=== PATIENT | male | born 1960 | race Caucasian/White ===

== ENCOUNTER 2023-08-19 18:04 | Emergency (ER) | payer OTHER ==
[2023-08-19 18:55] LABS: BASOPHILS ABSOLUTE AUTO 0.2 K/mm3 (0.0-0.2); EOSINOPHILS ABSOLUTE AUTO 0.3 K/mm3 (0.0-0.4); EOSINOPHILS PERCENT AUTO 1.7 % (0.0-6.0); HEMATOCRIT 46.7 % (42.0-52.0); HEMOGLOBIN 16.3 gm/dl (14.0-18.0); IMMATURE GRAN ABSOLUTE AUTO 0.19 K/mm3 (0.00-0.05); IMMATURE GRAN PERCENT AUTO 1.1 % (0.0-0.4); LYMPHOCYTES PERCENT AUTO 11.3 % (24.0-44.0); MEAN CORPUSCULAR HEMOGLOBIN 31.6 pg (28.0-32.0); MEAN CORPUSCULAR HGB CONC 34.9 g/dl (32.0-36.0); MEAN CORPUSCULAR VOLUME 90.5 fl (83.0-99.0); MEAN PLATELET VOLUME 10.7 fl (9.4-12.4); MONOCYTES ABSOLUTE AUTO 1.5 K/mm3 (0.0-0.8); MONOCYTES PERCENT AUTO 8.7 % (0.0-8.0); NEUTROPHILS ABSOLUTE AUTO 13.4 K/mm3 (1.8-7.7); NEUTROPHILS PERCENT AUTO 76.2 % (41.0-71.0); PLATELET COUNT,PLT 207 K/mm3 (150-400); RED BLOOD CELL COUNT 5.16 M/mm3 (4.52-5.90); WHITE BLOOD CELL COUNT,WBC 17.56 K/mm3 (3.9-11.3)
[2023-08-19 19:13] LABS: PROTHROMBIN TIME 10.7 SECONDS (9.7-12.0)
[2023-08-19 19:25] LABS: A/G RATIO 1.1 (1-2); ALBUMIN 4.3 g/dl (3.4-5.0); ANION GAP 13.1 (5-15); BILIRUBIN TOTAL 0.6 mg/dL (0.2-1.0); CALCIUM 9.4 mg/dL (8.5-10.1); CREATININE 1.5 mg/dL (0.7-1.3); EST CRCL DRUG DOSING (CG) 51.72 mL/min; ETHANOL BLOOD MEDICAL 0.05 gm% (0.00); PROTEIN TOTAL,TP 8.2 g/dl (6.4-8.2)
[2023-08-19 19:26] LABS: POTASSIUM,K 4.1 mEq/L (3.5-5.1)
[2023-08-19] MEDS: Lidocaine 1% 10 ML MDV INJECT ONE (21:11)
[2023-08-19] MEDS: Iopamidol 755 Mg/ML 100 ML Bottle IVPUSH ONE (23:00)
[2023-08-19] MEDS: Acetaminophen/HYDROcodone 325-5 MG Tab PO ONE (23:27)
[2023-08-20] MEDS: Acetaminophen/HYDROcodone 325-5 MG Tab PO ONE (00:08)
== END 2023-08-20 00:11 | disposition home or self-care (01) ==
LOC: JD.ED 18:04
DX: S02.31XA Fracture of orbital floor, right side, initial encounter for closed fracture (principal); S62.512A Displaced fracture of proximal phalanx of left thumb, initial encounter for closed fracture; S20.219A Contusion of unspecified front wall of thorax, initial encounter; M25.512 Pain in left shoulder; Z79.899 Other long term (current) drug therapy; V80.010A Animal-rider injured by fall from or being thrown from horse in noncollision accident, initial encounter; Y93.52 Activity, horseback riding
CPT/HCPCS: 26725; 36415; 70450; 71250; 71275; 72125; 72128; 73030; 73130; 73140; 80053; 80307; 82550; 84484; 85025; 85610; 99284; A9270; Q9967; 99283; J3490